=== PATIENT | male | born 1980 | race Caucasian/White ===

== ENCOUNTER 2017-07-22 18:06 | Emergency (ER) | payer MEDICAID, OTHER ==
[~2017-07-22] VITALS: Ht 185.4 cm; Wt 87.7 kg
[2017-07-22] MEDS ORDERED: DIAZEPAM 5 MG TABLET PO ONE (18:30)
[2017-07-22] MEDS ORDERED: KETOROLAC 30 MG/1 ML IM ONE (18:30)
[2017-07-22] MEDS ORDERED: KETOROLAC 30 MG/1 ML ONE (18:42)
[2017-07-22] MEDS ORDERED: DIAZEPAM 5 MG TABLET ONE (18:42)
[2017-07-22 19:52] VITALS: BP 129/74
== END 2017-07-22 19:59 | disposition home or self-care (01) ==
LOC: ED 19:45
DX: S39.012A Strain of muscle, fascia and tendon of lower back, initial encounter (principal); J45.909 Unspecified asthma, uncomplicated; X58.XXXA Exposure to other specified factors, initial encounter; Y93.89 Activity, other specified; Y92.89 Other specified places as the place of occurrence of the external cause; Y99.8 Other external cause status; Z87.891 Personal history of nicotine dependence
CPT/HCPCS: 72110; 96372; 99284; J1885

== ENCOUNTER 2018-03-07 16:23 | Emergency (ER) | payer MEDICAID, OTHER ==
[~2018-03-07] VITALS: Ht 185.4 cm; Wt 82.5 kg
[2018-03-07 16:25] VITALS: BP 108/72
[2018-03-07] MEDS ORDERED: KETOROLAC 30 MG/1 ML ONE (16:45)
[2018-03-07] MEDS ORDERED: KETOROLAC 30 MG/1 ML IM ONE (17:00)
== END 2018-03-07 17:20 | disposition home or self-care (01) ==
LOC: ED 17:14
DX: S46.912A Strain of unspecified muscle, fascia and tendon at shoulder and upper arm level, left arm, initial encounter (principal); X58.XXXA Exposure to other specified factors, initial encounter; Y93.89 Activity, other specified; Y92.89 Other specified places as the place of occurrence of the external cause; Y99.8 Other external cause status; J45.909 Unspecified asthma, uncomplicated; Z88.6 Allergy status to analgesic agent
CPT/HCPCS: 73030; 96372; 99284; J1885

== ENCOUNTER 2018-03-09 14:30 | Emergency (ER) | payer MEDICAID ==
[~2018-03-09] VITALS: Ht 185.4 cm; Wt 83.4 kg
[2018-03-09 14:32] VITALS: BP 108/74
[2018-03-09] MEDS ORDERED: DIAZEPAM 5 MG TABLET ONE (15:38)
[2018-03-09] MEDS ORDERED: OXYcodone/APAP 5/325MG TABLET ONE (15:39)
[2018-03-09] MEDS ORDERED: OXYcodone/APAP 5/325MG TABLET PO ONE (16:00)
[2018-03-09] MEDS ORDERED: DIAZEPAM 5 MG TABLET PO ONE (16:00)
[2018-03-09] MEDS ORDERED: SODIUM CHLORIDE FLUSH 10ML SYR IVF ONE (16:00)
[2018-03-09 16:02] LABS: BASOPHILS # (AUTO) 0.03 x10^3/uL (0-0.1); BASOPHILS % (AUTO) 0 % (0-1); EOSINOPHILS # (AUTO) 0.13 x10^3/uL (0-0.4); EOSINOPHILS % (AUTO) 2 % (1-7); LYMPHOCYTES # (AUTO) 2.21 x10^3/uL (1-3.4); LYMPHOCYTES % (AUTO) 37 % (22-44); MD NO; MEAN CORPUSCULAR HEMOGLOBIN 32.1 pg (27.5-34.5); MEAN CORPUSCULAR HGB CONC 34.3 g/dL (33.2-36.2); MEAN CORPUSCULAR VOLUME 93.5 fL (81-97); MEAN PLATELET VOLUME 8.5 fL (7.4-10.4); MONOCYTES # (AUTO) 0.35 x10^3/uL (0.2-0.8); MONOCYTES % (AUTO) 6 % (2-9); NEUTROPHILS # (AUTO) 3.27 x10^3/uL (1.8-6.8); NEUTROPHILS % (AUTO) 55 % (42-75); PLATELET COUNT 206 x10^3/uL (130-400); RED BLOOD COUNT 4.74 x10^6/uL (4.38-5.82); RED CELL DISTRIBUTION WIDTH 12.8 % (9.4-14.8)
[2018-03-09 16:12] LABS: ALANINE AMINOTRANSFERASE 19 U/L (12-78); ALBUMIN 3.6 g/dL (3.4-5.0); ANION GAP 3 mmol/L (5-15); CALCIUM 8.2 mg/dL (8.5-10.1); CHLORIDE 109 mmol/L (98-107); CREATININE 0.89 mg/dL (0.7-1.3)
[2018-03-09 16:14] LABS: ALKALINE PHOSPHATASE 46 U/L (45-117); BILIRUBIN,TOTAL 0.9 mg/dL (0.2-1.0); TOTAL PROTEIN 6.7 g/dL (6.4-8.2)
[2018-03-09] MEDS ORDERED: GADOBUTROL 10 MMOL/10 ML PFS ONE (16:34)
[2018-03-09] MEDS ORDERED: HYDROcodone/APAP 5/325 TABLET PO ONE (18:56)
[2018-03-09] MEDS ORDERED: HYDROcodone/APAP 5/325 TABLET ONE (19:02)
== END 2018-03-09 19:19 | disposition home or self-care (01) ==
LOC: ED 19:00
DX: M54.12 Radiculopathy, cervical region (principal); J45.909 Unspecified asthma, uncomplicated
CPT/HCPCS: 36415; 72125; 72156; 80053; 85025; 99285; A9585

== ENCOUNTER 2019-09-30 13:19 | Emergency (ER) | payer MEDICAID ==
[~2019-09-30] VITALS: Ht 185.4 cm; Wt 81.4 kg
--- NOTE | 2019-09-30 14:17 | NUR ---
PT HERE WITH C/O POSSIBLE LEFT INGUINAL HERNIA. 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 PT AAO X 4, NAD, ROOM AIR, CALL LIGHT WITHIN REACH. SIDERAIL X [address] MD AT BEDSIDE FOR EXAM.
[2019-09-30 14:18] VITALS: BP 107/75
== END 2019-09-30 14:55 ==
LOC: ED 14:30
DX: K40.91 Unilateral inguinal hernia, without obstruction or gangrene, recurrent (principal); F17.200 Nicotine dependence, unspecified, uncomplicated
CPT/HCPCS: 99283

== ENCOUNTER 2021-02-20 18:47 | Emergency (ER) | payer MEDICAID ==
[~2021-02-20] VITALS: Ht 185.4 cm; Wt 99.3 kg
[2021-02-20 18:55] VITALS: BP 114/72
[2021-02-20] MEDS ORDERED: KETOROLAC 30 MG/1 ML ONE (19:17)
[2021-02-20] MEDS ORDERED: KETOROLAC 30 MG/1 ML IM ONE (19:30)
== END 2021-02-20 19:42 | disposition home or self-care (01) ==
LOC: ED 19:30
DX: M54.5 Low back pain (principal); M54.6 Pain in thoracic spine; G89.29 Other chronic pain; J45.909 Unspecified asthma, uncomplicated
CPT/HCPCS: 96372; 99283; J1885

== ENCOUNTER 2021-03-13 13:43 | Day surgery (SDC) | payer MEDICAID ==
[~2021-03-13] VITALS: Ht 182.9 cm; Wt 96.6 kg
[~2021-03-13 13:43] MED LIST: CYCL5TAB PO; GABA600T7 PO
[2021-03-13 14:20] VITALS: BP 128/88
[2021-03-13] MEDS ORDERED: TRAZODONE PO (14:27)
[2021-03-13] MEDS ORDERED: PSYCH MED PO (14:28)
[2021-03-13] MEDS ORDERED: CHLORHEXIDINE 15 ML UDC PO ONE (14:30)
[2021-03-13] MEDS ORDERED: LACTATED RINGERS 1,000 ML IV SCH (14:30)
[2021-03-13] MEDS ORDERED: EPINEPHRINE 1 MG/ML, 1ML ONE (15:09)
[2021-03-13] MEDS ORDERED: BUPIVACAINE/PF 0.5% ONE (15:09)
[2021-03-13] MEDS ORDERED: FENTANYL PF 100 MCG/2ML ONE ×3 (15:18→17:18)
[2021-03-13] MEDS ORDERED: MIDAZOLAM 1 MG/ML, 2ML ONE (15:18)
[2021-03-13] MEDS ORDERED: PROPOFOL 10 MG/ML, 20ML ONE (16:11)
[2021-03-13] MEDS ORDERED: NEOSTIGMINE 1 MG/ML, 10ML ONE (16:11)
[2021-03-13] MEDS ORDERED: ROCURONIUM 10MG/ML,5ML ONE (16:11)
[2021-03-13] MEDS ORDERED: GLYCOPYRROLATE 0.2MG/1ML, 5ML ONE (16:11)
[2021-03-13] MEDS ORDERED: ONDANSETRON 2MG/ML, 2ML ONE (16:11)
[2021-03-13] MEDS ORDERED: SUCCINYLCHOLINE 20 MG/ML, 10ML ONE (16:11)
[2021-03-13] MEDS ORDERED: DEXAMETHASONE 4 MG/ML, 1ML ONE (16:11)
[2021-03-13] MEDS ORDERED: CEFAZOLIN 1,000 MG ONE (16:11)
[2021-03-13] MEDS ORDERED: IBUP-1223 PO (17:07)
[2021-03-13] MEDS ORDERED: OXYC5TAB2 PO (17:07)
[2021-03-13] MEDS ORDERED: ACET-1600 PO (17:07)
[2021-03-13] MEDS ORDERED: OXYcodone 5 MG/5 ML ORAL.SOL UDC ONE (17:18)
[2021-03-13] MEDS: FENTANYL PF 100 MCG/2ML IV PRN ×2 (17:20→17:31)
[2021-03-13] MEDS ORDERED: PROMETHAZINE 25 MG/ML, 1ML ONE (17:25)
[2021-03-13] MEDS ORDERED: LABETALOL 5MG/ML, 20ML IV PRN (17:30)
[2021-03-13] MEDS ORDERED: HYDROmorphone 1 MG/ML, 1ML INJ IVPush PRN (17:30)
[2021-03-13] MEDS ORDERED: HYDROcodone/APAP 7.5-325MG/15ML UDC PO PRN (17:30)
[2021-03-13] MEDS ORDERED: MEPERIDINE/PF 25MG/0.5ML IVPush PRN (17:30)
[2021-03-13] MEDS ORDERED: METHOCARBAMOL 1,000 MG in DEXTROSE 5% 100 ML IV PRN (17:30)
[2021-03-13] MEDS ORDERED: ONDANSETRON 2MG/ML, 2ML IVPush PRN (17:30)
[2021-03-13] MEDS ORDERED: KETOROLAC 30 MG/1 ML IVPush PRN (17:30)
[2021-03-13] MEDS ORDERED: OXYcodone 5 MG/5 ML ORAL.SOL UDC PO PRN (17:30)
[2021-03-13] MEDS ORDERED: PROMETHAZINE 25 MG/ML, 1ML IVPush PRN (17:30)
[2021-03-13] MEDS ORDERED: ACETAMINOPHEN 325 MG TABLET PO PRN (17:30)
[2021-03-13] MEDS ORDERED: METHOCARBAMOL 1000MG/10 ML IV ONE (17:30)
== END 2021-03-13 19:20 | disposition home or self-care (01) ==
LOC: OR 13:43
PROVIDERS: ATTEND Surgery
DX: K40.90 Unilateral inguinal hernia, without obstruction or gangrene, not specified as recurrent (principal); J45.909 Unspecified asthma, uncomplicated; Z20.822 Contact with and (suspected) exposure to COVID-19; Z79.899 Other long term (current) drug therapy
CPT/HCPCS: 49650; C1781; J0171; J0330; J0690; J1100; J2250; J2405; J2550; J2704; J2710; J2800; J3010; J7120; S2900; U0003; U0005

== ENCOUNTER 2021-03-15 20:17 | Emergency (ER) | payer MEDICAID ==
[~2021-03-15] VITALS: Ht 182.9 cm; Wt 98.7 kg
[~2021-03-15 20:17] MED LIST changes: +ACET-1600 PO; +IBUP-1223 PO; +OXYC5TAB2 PO; +PSYCH MED PO; +TRAZODONE PO
[2021-03-15 20:29] VITALS: BP 115/75
[2021-03-15] MEDS ORDERED: HYDROmorphone 1 MG/ML, 1ML INJ IVPush PRN (21:30)
[2021-03-15 21:35] LABS: BASOPHILS % (AUTO) 0 % (0-1); EOSINOPHILS % (AUTO) 2 % (1-7); LYMPHOCYTES % (AUTO) 17 % (22-44); MEAN CORPUSCULAR HEMOGLOBIN 33.1 pg (27.5-34.5); MEAN CORPUSCULAR HGB CONC 35.1 g/dL (33.2-36.2); MONOCYTES % (AUTO) 7 % (2-9); NEUTROPHILS % (AUTO) 74 % (42-75); PLATELET COUNT 156 x10^3/uL (130-400); RED BLOOD COUNT 4.57 x10^6/uL (4.38-5.82); RED CELL DISTRIBUTION WIDTH 13.4 % (9.4-14.8)
[2021-03-15 21:38] LABS: MD NO
[2021-03-15 21:41] LABS: ALANINE AMINOTRANSFERASE 87 U/L (12-78); ALBUMIN 3.9 g/dL (3.4-5.0); ANION GAP 5 mmol/L (5-15); CALCIUM 8.5 mg/dL (8.5-10.1); CHLORIDE 107 mmol/L (98-107); CREATININE 0.91 mg/dL (0.7-1.3)
[2021-03-15 21:43] LABS: ALKALINE PHOSPHATASE 61 U/L (45-117); BILIRUBIN,TOTAL 1.2 mg/dL (0.2-1.0); TOTAL PROTEIN 7.4 g/dL (6.4-8.2)
[2021-03-15] MEDS ORDERED: HYDROmorphone 1 MG/ML, 1ML INJ ONE (22:01)
[2021-03-15 22:20] LABS: MICROSCOPIC NOT IND
--- NOTE | 2021-03-15 22:45 | NUR ---
PT STATES HE GOT HERNIA SURGERY 2 DAYS AGO AND NOW HE FEELS PAIN IN HIS TESTICLES, PT STATES IT FEELS LIKE HIS TESTICLE IS GETTING SQUEEZED
--- NOTE | 2021-03-15 23:58 | NUR ---
F/U AND D/C INSTRUCTIONS GIVEN TO PT AND HE V/U. PIV D/C'D AND CATH TIP INTACT. PT D/C'D WITHOUT INCIDENT.
== END 2021-03-16 | disposition home or self-care (01) ==
LOC: ED 20:58
DX: S30.22XA Contusion of scrotum and testes, initial encounter (principal); L76.32 Postprocedural hematoma of skin and subcutaneous tissue following other procedure; J45.909 Unspecified asthma, uncomplicated; Z90.89 Acquired absence of other organs; Z88.8 Allergy status to other drugs, medicaments and biological substances; X58.XXXA Exposure to other specified factors, initial encounter; Y93.89 Activity, other specified; Y92.89 Other specified places as the place of occurrence of the external cause; Y99.8 Other external cause status
CPT/HCPCS: 36415; 76870; 80053; 81003; 85025; 96374; 99284; J1170